=== PATIENT | male | born 1940 | race Caucasian/White ===

== ENCOUNTER → 2021-03-02 09:48 | Outpatient (CLI) | payer OTHER, SELFPAY ==
[2021-03-02 10:25] LABS: Alanine Aminotransferase 20 IU/L (<50); Albumin 4.5 g/dL (3.5-5.0); Albumin Globulin Ratio 1.5 (1.0-2.8); Alkaline Phosphatase 72 U/L (38-126); Aspartate Aminotransferase 29 IU/L (17-59); BUN Creatinine Ratio 23.5 (6-22); Bilirubin Total 0.6 mg/dL (0.2-1.3); Blood Urea Nitrogen 24 mg/dL (9-20); Calcium 9.5 mg/dL (8.4-10.2); Carbon Dioxide 30 mmol/L (22-32); Chloride 108 mmol/L (98-107); Cholesterol 258 mg/dL (140-199); Estimated Glomerular Filt Rate > 60.0 mL/min (>60); Globulin 3.1 g/dL (1.7-4.1); Glucose 99 mg/dL (80-110); HDL Cholesterol 69 mg/dL (40-60); HEMOLYSIS < 15 (0-50); LDL Cholesterol Calculated 174 mg/dL (<100); Potassium 4.2 mmol/L (3.4-5.1); Sodium 141 mmol/L (137-145); Total Protein 7.6 g/dL (6.3-8.2); Triglycerides 75 mg/dL (35-150)
--- NOTE | 2021-03-02 11:58 | DI.CT.S_ITS ---
PROCEDURE: CT ABDOMEN PELVIS W CON INDICATIONS: LLQ tenderness, constipation, h/o bowel CA TECHNIQUE: After the administration of oral and IV contrast, axial sections were acquired from the lung bases to the pubic symphysis. Coronal and sagittal reformats were performed. For radiation dose reduction, the following was used: automated exposure control, adjustment of mA and/or kV according to patient size. COMPARISON: None. FINDINGS: Image quality: Excellent. Lung bases: Unremarkable. Heart: No significant findings. ABDOMEN: Liver: Normal size. Mild hepatic steatosis.. Gallbladder: Unremarkable. Biliary ducts: Unremarkable. Pancreas: Unremarkable. Spleen: Unremarkable. Adrenal Glands: Bilateral adrenal thickening. Kidneys and Ureters: Normal size. There are multiple renal cysts bilaterally, right greater than left. Stomach and Bowel: Stomach, small bowel loops, and colon are normal in caliber. There is appearance of mild thickening of cecum and ascending colon. There is a large amount of stool in colon. Peritoneum: No abnormal intraperitoneal fluid. No free air. Ventral Wall: No hernia. Abdominal Nodes: No retroperitoneal or mesenteric adenopathy by size criteria. Vessels: Aorta and inferior vena cava are normal in size. PELVIS: Pelvic Organs: Unremarkable. Bladder: Unremarkable. Prostate is enlarged. Pelvic Nodes: No enlarged lymph nodes. Miscellaneous: No inguinal hernias are seen. Bones: Degenerative disc and facet disease in lumbar spine IMPRESSION: 1. Question mild thickening of cecum and ascending colon. Recommend colonoscopy for follow-up evaluation. 2. Mild hepatic steatosis. 3. Multiple renal cysts bilaterally. 4. A large amount of stool in colon. Dictated by: Gabriela Valdez M.D. on 03/02/2021 at 16:41 Approved by: Gabriela Valdez M.D. on 03/02/2021 at 17:22
== END ==
PROVIDERS: Family Provider Family Medicine; PCP Family Medicine; Referring Provider Family Medicine; Visit Provider Family Medicine
DX: K76.0 Fatty (change of) liver, not elsewhere classified (principal); R10.814 Left lower quadrant abdominal tenderness; N28.1 Cyst of kidney, acquired; E78.5 Hyperlipidemia, unspecified; K21.9 Gastro-esophageal reflux disease without esophagitis; K59.00 Constipation, unspecified; Z85.068 Personal history of other malignant neoplasm of small intestine
CPT/HCPCS: 36415; 74177; 80053; 80061

== ENCOUNTER → 2021-03-24 10:04 | Outpatient (CLI) | payer OTHER, SELFPAY ==
[2021-03-24 11:53] LABS: COVID19 -Nasal RAPID Negative (Negative)
== END ==
PROVIDERS: Family Provider Family Medicine; PCP Family Medicine; Visit Provider Surgery
DX: Z01.812 Encounter for preprocedural laboratory examination (principal); Z20.822 Contact with and (suspected) exposure to COVID-19
CPT/HCPCS: 87635; C9803

== ENCOUNTER 2021-03-25 07:23 | Day surgery (SDC) | payer OTHER, SELFPAY ==
[2021-03-25] VITALS (7 sets, daily range): BP systolic 106–132; BP diastolic 63–78; PULSE 67–93; RESP 12–24; TEMP 36.6–37.1; O2SAT 95–98; BMI 23.0
[2021-03-25] MEDS: LACTATED RINGERS 1,000 ML 200 ML IV (08:19)
--- NOTE | 2021-03-25 08:34 | PM.PREOP ---
Pre-operative Note COVID-19 Criteria for continued procedure: Possibility delay results in more complex future surgery or treatment Interval Note History & Physical reviewed/Exam performed by Physician: Yes Changes to H&P: No
--- NOTE | 2021-03-25 08:57 | PM.OP.COLON ---
Operative Date/Time/Diagnoses Date of procedure: 03/25/21 Time of procedure: 08:57 Pre-op diagnosis: personal history of colon cancer melena Post-op diagnosis: same Procedure & Clinicians Study performed: Colonoscopy Same procedure as scheduled: Yes Indications: Personal history of colon cancer, recent melena Surgeon: Maurilio Guerra Procedure Notes Procedure in detail: Medications: Conscious sedation using 4mg IV midazolam and 100mcg IV of fentanyl The history and physical was performed/updated and the patient is ASA class is 2. The procedure was discussed in detail with the patient. Potential risks complications including infection, bleeding, missed diagnosis, perforation, need for surgery, and were explained. Their questions were answered and informed consent was obtained. Patient was brought to the procedure room and placed standard monitoring equipment. The patient's vital signs were monitored continuously throughout the entire procedure. Prior to starting time-out was performed. The patient was placed in the left lateral recumbent position. Procedural sedation was administered. Examination began with a thorough inspection of the perianal area there was no evidence of fissures, fistulae, external hemorrhoids or cutaneous malignancy. The colonoscopy scope was then placed into the anal canal and was advanced to the cecum, which was identified by the ileocecal valve, the appendiceal orifice and the confluence of the taenia. The scope was then slowly withdrawn examining colon thoroughly in all directions, irrigating it of any residual stool. FINDINGS 1. No masses or polyps 2. Diverticulosis 3. Distal colonic anastomosis widely patent without evidence of recurrence 4. Grade 1 internal hemorrhoids-likely source of melena The patient tolerated the procedure well. They will be discharged once criteria are met. The prep was of good/excellent quality. The withdrawl time was 7 minutes. The sedation time was 20 minutes. Specimen(s): none sent Complications: none Impression: Normal colonoscopy Post-procedure Recommendations: High fiber diet Disposition: same day surgery
[2021-03-25] MEDS: fentaNYL 250 MCG/5 ML INJ IV (09:01)
[2021-03-25] MEDS: MIDAZOLAM 5 MG/5 ML VIAL IV (09:02)
== END 2021-03-25 10:03 | disposition home or self-care (01) ==
PROVIDERS: Family Provider Family Medicine; PCP Family Medicine; Referring Provider Surgery; Visit Provider Surgery
PROC: 0DJD8ZZ Inspection of Lower Intestinal Tract, Via Natural or Artificial Opening Endoscopic (ICD-10-PCS; CPT 45378; principal; 2021-03-25 08:30)
DX: R10.9 Unspecified abdominal pain (principal); K92.1 Melena; Z85.038 Personal history of other malignant neoplasm of large intestine; R93.3 Abnormal findings on diagnostic imaging of other parts of digestive tract; K57.30 Diverticulosis of large intestine without perforation or abscess without bleeding; K64.0 First degree hemorrhoids
CPT/HCPCS: 45378; 99152; J2250; J3010

== ENCOUNTER → 2021-06-14 12:44 | Outpatient (CLI) | payer OTHER, SELFPAY ==
--- NOTE | 2021-06-14 12:45 | DI.RAD.S_ITS ---
PROCEDURE: XR FOOT RT MIN 3V INDICATIONS: foot pain TECHNIQUE: 3 views of the foot were acquired. COMPARISON: [facility], , FOOT 3V LEFT, 04/28/2016, 11:59. FINDINGS: Bones: No fractures or dislocations. 2.6 mm lucency is seen in the distal aspect of the 1st proximal phalanx, which may reflect fibrocystic change. Soft tissues: No tibiotalar joint effusion. IMPRESSION: No acute osseous abnormality. Dictated by: Avelino Gomez M.D. on 06/14/2021 at 13:50 Approved by: Avelino Gomez M.D. on 06/14/2021 at 13:51
== END ==
PROVIDERS: Family Provider Family Medicine; PCP Family Medicine; Referring Provider Nurse Practitioner Family; Visit Provider Nurse Practitioner Family
DX: S99.921A Unspecified injury of right foot, initial encounter (principal)
CPT/HCPCS: 73630

== ENCOUNTER 2021-08-07 12:37 | Emergency (ER) | payer OTHER, SELFPAY ==
[2021-08-07 12:58] VITALS: BP 140/70; PULSE 75; RESP 18; TEMP 36.6; O2SAT 99; BMI 23.0
[2021-08-07 13:00] VITALS: BP 118/62
--- NOTE | 2021-08-07 13:16 | DI.CT.S_ITS ---
PROCEDURE: CT ABDOMEN PELVIS WO CON INDICATIONS: LLQ/ left inguinal region pain TECHNIQUE: Noncontrast 5 mm thick sections acquired from the diaphragms to the symphysis. 5 mm coronal and sagittal reformats were then performed. For radiation dose reduction, the following was used: automated exposure control, adjustment of mA and/or kV according to patient size. COMPARISON: [facility], CT, CT ABDOMEN PELVIS W CON, 03/02/2021, 11:28. FINDINGS: Image quality: Excellent. Lung bases: Lung bases are clear. Heart size is normal. Solid organs: Liver: The liver has no mass or intrahepatic biliary ductal dilatation. Biliary: The gallbladder is not visualized and may be contracted. Pancreas: The pancreas has no mass or ductal dilatation. There is no surrounding inflammation. Spleen: Normal size. There are no masses. Adrenals: No hypertrophy or nodules. Kidneys: No obstructive calculus or hydronephrosis. No solid mass. Both kidneys have multiple simple cysts, the largest in the right inferior pole measuring 4 cm. Peritoneum and bowel: The distal esophagus is normal. The stomach is filled with food and fluid. The small bowel has a normal caliber and appearance. The terminal ileum is normal. The large bowel has increased stool throughout consistent with constipation.. No free fluid or air. Nodes and vessels: No retroperitoneal or mesenteric adenopathy by size criteria. Aorta and inferior vena cava are normal in size. Miscellaneous: There is a fat containing left inguinal hernia which is new since 03/02/2021. The fat within the inguinal hernia demonstrates increased attenuation. PELVIS: Genitourinary: The bladder has no wall thickening or mass. No bladder calcifications. Bones: Degenerative changes with no focal abnormality. No vertebral body compression fractures. IMPRESSION: 1. Fat containing left inguinal hernia which is new since 03/02/2021. The fat demonstrates mildly increased attenuation which suggests incarceration. 2. Severe constipation. 3. Simple renal cysts. Dictated by: Arun Alvarado M.D. on 08/07/2021 at 12:47 Approved by: Arun Alvarado M.D. on 08/07/2021 at 13:00
--- NOTE | 2021-08-07 13:17 | ED_ITS ---
HPI - Abdominal Pain <ANUM Quinn - Last Filed: 08/07/21 15:02> General Chief Complaint: Abdominal Pain Stated Complaint: pain lower abdomine area Time Seen by Provider: 08/07/21 12:58 Source: patient Mode of arrival: Ambulatory History of Present Illness HPI narrative: 81-year-old male presents to the emergency department with left lower quadrant and left inguinal region pain x2 months. Patient reports that the pain radiates into his left testicle but denies any penile or testicular pain or. Patient suspects he has a hernia secondary to lifting heavy objects at home. Patient reports occasional constipation that is improved with magnesium. Patient states he had a colonoscopy in Mar 2021 and was unremarkable with the exception of diverticulosis. History of colon cancer in 2006. Patient denies any dysuria, difficulty urinating, CVA tenderness, N/V/D. Related Data Allergies Allergy/AdvReac Type Severity Reaction Status Date / Time No Known Drug Allergies Allergy Verified 06/14/21 12:14 Review of Systems <ANUM Quinn - Last Filed: 08/07/21 15:02> Review of Systems Narrative: Patient denies current fever, chills, blurry or double vision, earache, nasal congestion, sore throat, new loss of smell or taste, chest discomfort, SOB, N&V, diarrhea, dysuria, frequency, urgency, muscle or body aches, skin changes, numbness & tingling or limb weakness. Patient History <ANUM Quinn - Last Filed: 08/07/21 15:02> Medical History Anxiety Bronchospasm Chronic back pain Chronic headaches Colon cancer (2006) Colon polyps Colorectal cancer (2006) Conjunctivitis Hyperlipidemia Kidney infection Measles Memory loss Mumps Seborrheic keratosis Short-term memory loss Stroke Syncope Tendonitis Tubular adenoma (11/17/10) Surgical History History of ankle surgery (1956) History of appendectomy (11/16/06) History of colonoscopy (02/22/13) History of colonoscopy (06/20/17) History of colonoscopy with polypectomy (11/17/10) History of left cataract surgery (04/25/17) History of open sigmoidectomy (11/16/06) History of right cataract surgery (04/11/17) Family History Brother Age: 82 Heart trouble Cancer Mother Age: 101 Pain in joint, pain in unspecified joint Family/Other No problems noted. Family/Other No problems noted. Father Emphysema lung Grandfather No problems noted. Grandmother No problems noted. Grandfather Ruptured appendix Grandmother No problems noted. Sister Rheumatic fever in pediatric patient Social History household members: spouse Smoking Status: Former smoker alcohol intake: current substance use type: does not use Smoking Status: Former smoker alcohol intake frequency: 0-2 drinks per day Substance Use Type: marijuana Exam <ANUM Quinn - Last Filed: 08/07/21 15:02> Narrative Exam Narrative: Examination of well kempt and physically fit 81 year old male was unremarkable with the exception of left inguinal region tenderness. Initial Vital Signs Initial Vital Signs: Vital Signs Temperature 98 F 08/07/21 12:58 Pulse Rate 75 08/07/21 12:58 Respiratory Rate 18 08/07/21 12:58 Blood Pressure 140/70 08/07/21 12:58 Pulse Oximetry 99 08/07/21 12:58 Oxygen Delivery Method 08/07/21 12:58 verified Const General: cooperative, healthy appearing and comfortable Chest Chest: normal inspection of the chest Resp Effort & Inspection: normal respiratory effort Auscultation: clear to auscultation bilaterally Cardio Heart Sounds: S1 normal and S2 normal GI Inspection: normal to inspection Palpation: soft Auscultation: normal bowel sounds General: No CVA tenderness External: normal external exam, circumcised, no inguinal lymphadenopathy and no scrotal swelling Penis: normal penis Meatus: meatus normal Scrotum: scrotum normal and cremasteric reflex present Testes: normal Neuro General: patient alert and patient oriented x3 Psych Appearance: grossly normal <Ailyn Pedroza DO - Last Filed: 08/09/21 08:43> Initial Vital Signs Initial Vital Signs: Vital Signs Temperature 98 F 08/07/21 12:58 Pulse Rate 75 08/07/21 12:58 Respiratory Rate 18 08/07/21 12:58 Blood Pressure 140/70 08/07/21 12:58 Pulse Oximetry 99 08/07/21 12:58 Oxygen Delivery Method 08/07/21 12:58 Course <ANUM Quinn - Last Filed: 08/07/21 15:02> Orders Ordered: ED Orders 08/07/21 13:16 CT abdomen pelvis wo con Stat 08/07/21 13:18 Urine Culture Stat Urine Microscopic Stat 08/07/21 13:48 Complete Blood Count AUTO DIFF Stat Comprehensive Metabolic Panel Stat Lipase Stat Consultations Consultation #1: General surgery, Dr. Gant. Dr. Gant recommended patient contact [facility] on Monday, August 10 for evaluation and possible scheduling for elective surgery. Vital Signs Vital signs: Vital Signs - 8 hr 08/07/21 12:58 08/07/21 13:00 Temperature 98 F Pulse Rate 75 Respiratory Rate 18 Blood Pressure 140/70 118/62 Pulse Oximetry 99 Oxygen Delivery Method Room Air <Ailyn Pedroza DO - Last Filed: 08/09/21 08:43> Orders Ordered: ED Orders 08/07/21 13:16 CT abdomen pelvis wo con Stat 08/07/21 13:18 Urine Culture Stat Urine Microscopic Stat 08/07/21 13:48 Complete Blood Count AUTO DIFF Stat Comprehensive Metabolic Panel Stat Lipase Stat Vital Signs Vital signs: Vital Signs - 8 hr 08/07/21 12:58 08/07/21 13:00 Temperature 98 F Pulse Rate 75 Respiratory Rate 18 Blood Pressure 140/70 118/62 Pulse Oximetry 99 Oxygen Delivery Method Room Air MDM - Abdominal Pain <ANUM Quinn - Last Filed: 08/07/21 15:02> Differential Diagnosis Differential diagnosis: Likely constipation and other (left inguinal hernia) Lab Data Result diagrams: 08/07/21 13:48 08/07/21 13:48 Labs: Lab Results 08/07/21 08/07/21 08/07/21 Range/Units 13:18 13:48 13:48 WBC 6.5 (4.5-11.0) X10^3/uL RBC 4.22 L (4.5-5.9) X10^6/uL Hgb 13.5 (13.5-17.5) g/dL Hct 39.1 L (41-53) % MCV 92.7 (80-100) fL MCH 31.9 (26-34) PG MCHC 34.5 (30-36) % RDW 13.6 (11.6-14.8) % Plt Count 185 (150-400) X10^3/uL Neut % (Auto) 76.5 H (50-75) % Lymph % (Auto) 12.7 L (25-40) % Centre % (Auto) 7.0 (3-14) % Eos % (Auto) 3.1 (2-4) % Baso % (Auto) 0.7 (0-2) % Neut # (Auto) 5000 (2336-6191) /uL Lymph # (Auto) 800 L (0562-9000) /uL Centre # (Auto) 500 (0-900) /uL Eos # (Auto) 200 (0-450) /uL Baso # (Auto) 0 (0-100) /uL Sodium 139 (137-145) mmol/L Potassium 4.2 (3.4-5.1) mmol/L Chloride 105 (98-107) mmol/L Carbon Dioxide 26 (22-32) mmol/L BUN 31 H (9-20) mg/dL Creatinine 0.95 (0.66-1.25) mg/dL Estimated GFR > 60 (>60) mL/min BUN/Creatinine Ratio 32.6 H (6-22) Glucose 126 H (80-110) mg/dL Calcium 8.9 (8.4-10.2) mg/dL Total Bilirubin 0.6 (0.2-1.3) mg/dL AST 28 (17-59) IU/L ALT 20 (<50) IU/L Alkaline Phosphatase 68 (38-126) U/L Total Protein 6.7 (6.3-8.2) g/dL Albumin 4.0 (3.5-5.0) g/dL Globulin 2.7 (1.7-4.1) g/dL Albumin/Globulin Ratio 1.5 (1.0-2.8) Lipase 268 (23-300) U/L Urine RBC 10-30/hpf H (0-5/HPF) Urine WBC 1-5/hpf (0-5/HPF) Ur Squamous Epith Cells None seen (0-5/HPF) Urine Bacteria None seen (None) Ur Culture Indicated? Cult not indicated Point of care testing: Urine Dip Bedside Urine Glucose Negative Bedside Urine Bilirubin - Negative Bedside Urine Ketone - Negative Urine Specific [place] 1.015 Bedside Urine Occult Blood +++ Bedside Urine pH 6.0 Bedside Urine Protein +/- 15 Bedside Urine Urobilinogen - Negative Bedside Urine Nitrite - Negative Bedside Urine Leukocytes - Negative Esterase Imaging Data CT scan - abdomen/pelvis: Radiologist's Impression: [address] [address] [address] Scan Report Signed Patient: Sylvain Escobedo MR#: [id number] : 1940 Acct:[id number] Age/Sex: 81 / M Date of Service: 08/07/21 Loc: ED Accession Number: [id number] ?? Procedure: CT abdomen pelvis wo con Ordering Provider: Tomi Garcia PROCEDURE:? CT ABDOMEN PELVIS WO CON ? INDICATIONS:? LLQ/ left inguinal region pain ? TECHNIQUE:? Noncontrast 5 mm thick sections acquired from the diaphragms to the symphysis.? 5 mm coronal and sagittal reformats were then performed.? For radiation dose reduction, the following was used:? automated exposure control, adjustment of mA and/or kV according to patient size.? ? COMPARISON:? [facility], CT, CT ABDOMEN PELVIS W CON, 03/02/2021, 11:28. ? FINDINGS: Image quality:? Excellent.? ? Lung bases:? Lung bases are clear.? Heart size is normal. ? Solid organs:? Liver: The liver has no mass or intrahepatic biliary ductal dilatation. Biliary:? The gallbladder is not visualized and may be contracted.? Pancreas: The pancreas has no mass or ductal dilatation. There is no surrounding inflammation. Spleen: Normal size. There are no masses. Adrenals: No hypertrophy or nodules. Kidneys: No obstructive calculus or hydronephrosis.? No solid mass.? Both kidneys have multiple simple cysts, the largest in the right inferior pole measuring 4 cm. ? Peritoneum and bowel:? The distal esophagus is normal.? The stomach is filled with food and fluid.? The small bowel has a normal caliber and appearance. The terminal ileum is normal. The large bowel has increased stool throughout consistent with constipation..? No free fluid or air.? ? Nodes and vessels:? No retroperitoneal or mesenteric adenopathy by size criteria.? Aorta and inferior vena cava are normal in size.? ? Miscellaneous:? There is a fat containing left inguinal hernia which is new since 03/02/2021.? The fat within the inguinal hernia demonstrates increased a ttenuation. ? PELVIS:? Genitourinary:? The bladder has no wall thickening or mass. No bladder calcif ications. ? Bones:? Degenerative changes with no focal abnormality.? No vertebral body compression fractures.? ? IMPRESSION: 1. Fat containing left inguinal hernia which is new since 03/02/2021.? The fat demonstrates mildly increased attenuation which suggests incarceration.? 2. Severe constipation. 3. Simple renal cysts.? ? ? Dictated by: Arun Alvarado M.D. on 08/07/2021 at 12:47 ? ? Approved by: Arun Alvarado M.D. on 08/07/2021 at 13:00 ? MDM Narrative Medical decision making narrative: 81-year-old male presents to emergency department with left inguinal region tenderness that radiates to the left testicle. Abdominal CT reveals severe constipation and left inguinal hernia incarceration. Urinalysis reveals p ositive for blood and has multiple cysts in his kidneys. Consultation [facility]. Means who recommended patient call his office on Monday to schedule an appointment for evaluation and possible elective surgery. Discussed increased oral hydration and use of magnesium citrate to improve symptoms constipation. Discussed plan of care with patient, who was agreeable with course of action. <Ailyn Pedroza, DO - Last Filed: 08/09/21 08:43> Lab Data Labs: Lab Results 08/07/21 08/07/21 08/07/21 Range/Units 13:18 13:48 13:48 WBC 6.5 (4.5-11.0) X10^3/uL RBC 4.22 L (4.5-5.9) X10^6/uL Hgb 13.5 (13.5-17.5) g/dL Hct 39.1 L (41-53) % MCV 92.7 (80-100) fL MCH 31.9 (26-34) PG MCHC 34.5 (30-36) % RDW 13.6 (11.6-14.8) % Plt Count 185 (150-400) X10^3/uL Neut % (Auto) 76.5 H (50-75) % Lymph % (Auto) 12.7 L (25-40) % Centre % (Auto) 7.0 (3-14) % Eos % (Auto) 3.1 (2-4) % Baso % (Auto) 0.7 (0-2) % Neut # (Auto) 5000 (6089-6363) /uL Lymph # (Auto) 800 L (6644-1781) /uL Centre # (Auto) 500 (0-900) /uL Eos # (Auto) 200 (0-450) /uL Baso # (Auto) 0 (0-100) /uL Sodium 139 (137-145) mmol/L Potassium 4.2 (3.4-5.1) mmol/L Chloride 105 (98-107) mmol/L Carbon Dioxide 26 (22-32) mmol/L BUN 31 H (9-20) mg/dL Creatinine 0.95 (0.66-1.25) mg/dL Estimated GFR > 60 (>60) mL/min BUN/Creatinine Ratio 32.6 H (6-22) Glucose 126 H (80-110) mg/dL Calcium 8.9 (8.4-10.2) mg/dL Total Bilirubin 0.6 (0.2-1.3) mg/dL AST 28 (17-59) IU/L ALT 20 (<50) IU/L Alkaline Phosphatase 68 (38-126) U/L Total Protein 6.7 (6.3-8.2) g/dL Albumin 4.0 (3.5-5.0) g/dL Globulin 2.7 (1.7-4.1) g/dL Albumin/Globulin Ratio 1.5 (1.0-2.8) Lipase 268 (23-300) U/L Urine RBC 10-30/hpf H (0-5/HPF) Urine WBC 1-5/hpf (0-5/HPF) Ur Squamous Epith Cells None seen (0-5/HPF) Urine Bacteria None seen (None) Ur Culture Indicated? Cult not indicated Point of care testing: Urine Dip Bedside Urine Glucose Negative Bedside Urine Bilirubin - Negative Bedside Urine Ketone - Negative Urine Specific [place] 1.015 Bedside Urine Occult Blood +++ Bedside Urine pH 6.0 Bedside Urine Protein +/- 15 Bedside Urine Urobilinogen - Negative Bedside Urine Nitrite - Negative Bedside Urine Leukocytes - Negative Esterase Discharge Plan Departure Patient Disposition: Home Clinical Impression: Inguinal hernia, Constipation Instructions: Groin Hernia -- Adult, DI for Constipation Activity Restrictions/Additional Instructions: *You have been diagnosed with a left inguinal hernia and constipation. I recommend you contact [facility] at [phone] on Monday, August 10 to discuss an appointment and possible elective surgery. For your constipation, I recommend you drink plenty of water and take up to 1 bottle of magnesium citrate, as needed for soft bowel movements. Please return to the emergency room for any intolerable pain, chest pain, difficulty breathing, etc. *What to do: *Please continue to take your regular medications as directed. [ ] New medication prescriptions sent to your pharmacy: [ ] [ ] New medication written as a paper prescription [x ] No new medications given *Please follow up with your primary care provider in 2-3 days, call for an appointment. Let them know you were seen in the Emergency Department and that we ask that you be seen in follow up. We will electronically transmit a record of today's note if your PCP is in our system *If you do not have a primary care provider please contact the [facility] Resource line at [phone]. They will ask some questions about your medical history and help get you set up with a doctor in the community. *Return to Emergency Department if you should have any new, worsening or concerning symptoms, such as [fever greater than 101 F, shaking chills, worsening pain, persistent vomiting or other bothersome symptoms] Referrals: Butch Gant MD [Physician] - Param Law MD [Primary Care Provider] - Visit Report Forms: Patient Portal/API <Ailyn Pedroza DO - Last Filed: 08/09/21 08:43> [facility] Att[facility]: I was immediately available in the department for consultation. Documentation has been reviewed. I agree with assessment and plan.
[2021-08-07 13:31] VITALS: PULSE 72; O2SAT 97
[2021-08-07 13:35] LABS: Bacteria Urine None Seen; RBC Urine 10-30/HPF (0-5/HPF); Squamous Epithelial Cell Urine None Seen (0-5/HPF); WBC Urine 1-5/HPF (0-5/HPF)
[2021-08-07 13:36] LABS: Culture Indicated Urine Cult Not Indicated
[2021-08-07 13:54] LABS: Add Manual Diff / Slide Review NO; Basophils Absolute Auto 0 /uL (0-100); Basophils Percent Auto 0.7 % (0-2); Eosinophils Absolute Auto 200 /uL (0-450); Eosinophils Percent Auto 3.1 % (2-4); Hematocrit 39.1 % (41-53); Hemoglobin 13.5 g/dL (13.5-17.5); Lymphocytes Absolute Auto 800 /uL (1100-4500); Lymphocytes Percent Auto 12.7 % (25-40); Mean Corpuscular HGB Conc 34.5 % (30-36); Mean Corpuscular Hemoglobin 31.9 PG (26-34); Mean Corpuscular Volume 92.7 fL (80-100); Monocytes Absolute Auto 500 /uL (0-900); Neutrophils Absolute Auto 5000 /uL (1500-7000); Neutrophils Percent Auto 76.5 % (50-75); Platelet Count 185 X10^3/uL (150-400); Red Blood Cell Count 4.22 X10^6/uL (4.5-5.9); Red Cell Distribution Width 13.6 % (11.6-14.8); White Blood Cell Count 6.5 X10^3/uL (4.5-11.0)
[2021-08-07 14:00] VITALS: PULSE 68; O2SAT 97
[2021-08-07 14:04] LABS: Alanine Aminotransferase 20 IU/L (<50); Albumin Globulin Ratio 1.5 (1.0-2.8); Alkaline Phosphatase 68 U/L (38-126); Aspartate Aminotransferase 28 IU/L (17-59); BUN Creatinine Ratio 32.6 (6-22); Bilirubin Total 0.6 mg/dL (0.2-1.3); Blood Urea Nitrogen 31 mg/dL (9-20); Calcium 8.9 mg/dL (8.4-10.2); Carbon Dioxide 26 mmol/L (22-32); Chloride 105 mmol/L (98-107); Estimated Glomerular Filt Rate > 60 mL/min (>60); Globulin 2.7 g/dL (1.7-4.1); Glucose 126 mg/dL (80-110); HEMOLYSIS < 15 (0-50); Lipase 268 U/L (23-300); Potassium 4.2 mmol/L (3.4-5.1); Sodium 139 mmol/L (137-145); Total Protein 6.7 g/dL (6.3-8.2)
[2021-08-07 14:30] VITALS: PULSE 68; O2SAT 97
[2021-08-07 14:59] VITALS: BP 138/73; PULSE 68; RESP 16; O2SAT 98
== END 2021-08-07 15:03 | disposition home or self-care (01) ==
PROVIDERS: Emergency Provider Registered Nurse; Family Provider Family Medicine; PCP Family Medicine
DX: K40.90 Unilateral inguinal hernia, without obstruction or gangrene, not specified as recurrent (principal); K59.00 Constipation, unspecified
CPT/HCPCS: 36415; 74176; 80053; 81003; 81015; 83690; 85025; 87086; 99284

== ENCOUNTER → 2022-01-06 09:03 | Outpatient (CLI) | payer OTHER, SELFPAY ==
[2022-01-06 11:15] LABS: COVID19 -Nasal RAPID Negative (Negative)
== END ==
PROVIDERS: Family Provider Family Medicine; PCP Family Medicine; Visit Provider Surgery
DX: Z20.822 Contact with and (suspected) exposure to COVID-19 (principal); Z01.812 Encounter for preprocedural laboratory examination
CPT/HCPCS: 87635; C9803

== ENCOUNTER → 2022-01-20 10:40 | Outpatient (CLI) | payer OTHER, SELFPAY ==
[2022-01-20 13:11] LABS: COVID19 -Nasal RAPID Negative (Negative)
== END ==
PROVIDERS: Family Provider Family Medicine; PCP Family Medicine; Visit Provider Surgery
DX: Z01.812 Encounter for preprocedural laboratory examination (principal); Z20.822 Contact with and (suspected) exposure to COVID-19
CPT/HCPCS: 87635; C9803

== ENCOUNTER 2022-01-21 13:35 | Day surgery (SDC) | payer OTHER, SELFPAY ==
[2022-01-05 07:49] VITALS: BMI 23.0
[2022-01-21 14:15] VITALS: BP 135/72; PULSE 78; RESP 16; TEMP 36.6; O2SAT 98
[2022-01-21 15:02] VITALS: BMI 23.0
--- NOTE | 2022-01-21 16:26 | P.OP_ITS ---
Operative Date/Time/Diagnoses Date of procedure: 01/21/22 Time of procedure: 16:26 Pre-op diagnosis: Left inguinal hernia Post-op diagnosis: same Procedure & Clinicians Procedure: Open left inguinal hernia repair with mesh Same procedure as scheduled: Yes Indications: Symptomatic left inguinal hernia Surgeon: Maurilio Thurman Yes if Unassisted: Yes Anesthesia Type: General Operative Notes Findings: Indirect hernia. No indirect floor defect Specimen(s): none sent Estimated Blood Loss (mL): 20 Procedure in detail: The patient was placed supine on the table and bilateral lower extremity compression devices were applied. Anesthesia was induced they were intubated with an LMA and received Ancef. A time-out was performed. They were prepped and draped in sterile fashion. The right external inguinal ring and the anterior superior iliac crest were identified and marked. 1 finger breath above the inguinal ligament the skin was infiltrated with 0.25% bupivacaine. The skin incision was made, the subcutaneous tissues were divided with electrocautery exposing the external oblique aponeurosis which was then opened along the direction of its fibers. Using blunt dissection the internal oblique aporneurosis was from the external oblique upper leaflet. The cord was carefully dissected away from the inguinal canal adjacent to the pubic tubercle. The cord including the vas deferens, testicular bloody supply, ilioguinal and genital nerve were encircled with a [place] drain. No direct floor defect was identified. The cremasteric fibers surrounding the cord were divided adjacent to the internal ring. The vas deferens and the testicular vessels were preserved and protected. The cord contents were carefully explored. There was a small indirect hernia on the anterior medial aspect of the cord which was skeletonized away from the vas deferens and testicular blood supply. The indirect hernia was skeletonized back to the internal ring and reduced spontaneously into the abdomen. A 7x 15 cm lightweight Bard Pro Loop hernia mesh was anchored to the insertion of the rectus muscle at the pubic tubercle such that there was approximately 2 cm of tubercle overlap with Ethibond. The inferior edge of the mesh was secured to the shelving edge of the inguinal ligament using Ethibond. Interrupted 3 0 Vicryl suture was used to anchor the superior aspect of the mesh to the conjoined tendon in several places. The tails were then reapproximated loosely around the spermatic cord. The tails of the mesh were then tucked under the external oblique aponeurosis. The repair was checked for hemostasis. The wound was irrigated with sterile saline. The external oblique aponeurosis was reapproximated in a running fashion using 3 0 Vicryl. The subcutaneous tissues were reapproximated with 3 0 Vicryl skin closed with 4 0 Monocryl followed by the application of Dermabond. At the end of the operation I ensured that both testicles were within the scrotum. The sponge instrument count at the end operation was correct. The patient emerged from anesthesia was extubated and transferred to the postoperative care unit in stable condition. A total of 30 ml of of 0.25% bupivicaine was used to infiltrate the skin. Complications: none Post-operative Condition: stable Disposition: same day surgery
--- NOTE | 2022-01-21 16:26 | PM.PREOP ---
Pre-operative Note Interval Note History & Physical reviewed/Exam performed by Physician: Yes Changes to H&P: No
[2022-01-21] MEDS: CEFAZOLIN 2 GM/100 ML PREMIX 100 ML IV (16:38)
[2022-01-21] MEDS: LIDOCAINE 1% 20 ML INJ (16:59)
--- NOTE | 2022-01-21 17:03 | SUR.OPER ---
Supine on padded OR bed, head on pillow, arms secured on padded arm boards at <90 degrees abduction, legs uncrossed, safety belt at thigh, GEL TO HEELS
[2022-01-21 17:31] VITALS: BP 131/89; PULSE 92; RESP 17; TEMP 36.2; O2SAT 97
[2022-01-21 17:36] VITALS: BP 136/80; PULSE 78; RESP 13; O2SAT 99
[2022-01-21 17:41] VITALS: BP 137/89; PULSE 92; RESP 15; O2SAT 100
[2022-01-21 17:47] VITALS: BP 141/96; PULSE 86; RESP 13; TEMP 36.2; O2SAT 100
[2022-01-21 17:54] VITALS: BP 151/86; PULSE 86; RESP 13; TEMP 36.4; O2SAT 100
== END 2022-01-21 18:27 | disposition home or self-care (01) ==
PROVIDERS: Family Provider Family Medicine; PCP Family Medicine; Referring Provider Surgery; Visit Provider Surgery
PROC: (CPT 49505; principal; 2022-01-21 15:00)
DX: K40.90 Unilateral inguinal hernia, without obstruction or gangrene, not specified as recurrent (principal)
CPT/HCPCS: 49505; 82962; J0690; J1100; J1885; J2405; J2704; J3010

== ENCOUNTER → 2022-02-08 12:55 | Outpatient (CLI) | payer OTHER, SELFPAY ==
--- NOTE | 2022-02-08 12:57 | DI.RAD.S_ITS ---
PROCEDURE: XR FOOT RT MIN 3V INDICATIONS: right foot pain TECHNIQUE: 3 views of the foot were acquired. COMPARISON: [facility], , XR FOOT RT MIN 3V, 06/14/2021, 12:33. FINDINGS: Bones: No fractures or dislocations. No suspicious bony lesions. Soft tissues: No tibiotalar joint effusion. Achilles tendon appears normal. IMPRESSION: No fracture. No acute osseous lesion. If symptoms and/or clinical suspicion for pathology persists, further assessment with repeat radiographs (7-10 days) or advanced imaging (e.g. CT, MRI or bone scan) should be considered. Dictated by: Opal Alarcon MD, PhD on 02/08/2022 at 13:18 Approved by: Opal Alarcon MD, PhD on 02/08/2022 at 13:19
== END ==
PROVIDERS: Family Provider Family Medicine; PCP Family Medicine; Referring Provider Physician Assistant Medical; Visit Provider Physician Assistant Medical
DX: L03.119 Cellulitis of unspecified part of limb (principal); R60.0 Localized edema; Z91.81 History of falling
CPT/HCPCS: 73630

== ENCOUNTER → 2022-03-16 09:01 | Outpatient (CLI) | payer OTHER, SELFPAY ==
[2022-03-16 10:02] LABS: Add Manual Diff / Slide Review NO; Basophils Absolute Auto 100 /uL (0-100); Eosinophils Absolute Auto 400 /uL (0-450); Eosinophils Percent Auto 6.3 % (2-4); Hematocrit 38.6 % (41-53); Hemoglobin 12.9 g/dL (13.5-17.5); Lymphocytes Absolute Auto 1000 /uL (1100-4500); Lymphocytes Percent Auto 14.3 % (25-40); Mean Corpuscular HGB Conc 33.3 % (30-36); Mean Corpuscular Hemoglobin 31.2 PG (26-34); Mean Corpuscular Volume 93.5 fL (80-100); Monocytes Absolute Auto 500 /uL (0-900); Monocytes Percent Auto 7.5 % (3-14); Neutrophils Absolute Auto 5000 /uL (1500-7000); Neutrophils Percent Auto 70.9 % (50-75); Platelet Count 298 X10^3/uL (150-400); Red Blood Cell Count 4.13 X10^6/uL (4.5-5.9); Red Cell Distribution Width 13.3 % (11.6-14.8)
[2022-03-16 10:27] LABS: Alanine Aminotransferase 18 IU/L (<50); Albumin 3.9 g/dL (3.5-5.0); Albumin Globulin Ratio 1.3 (1.0-2.8); Alkaline Phosphatase 92 U/L (38-126); Aspartate Aminotransferase 24 IU/L (17-59); BUN Creatinine Ratio 22.9 (6-22); Bilirubin Total 0.6 mg/dL (0.2-1.3); Blood Urea Nitrogen 22 mg/dL (9-20); Calcium 9.2 mg/dL (8.4-10.2); Carbon Dioxide 30 mmol/L (22-32); Chloride 103 mmol/L (98-107); Cholesterol 204 mg/dL (140-199); Estimated Glomerular Filt Rate > 60 mL/min (>60); Globulin 2.9 g/dL (1.7-4.1); Glucose 88 mg/dL (80-110); HDL Cholesterol 52 mg/dL (40-60); HEMOLYSIS < 15 (0-50); LDL Cholesterol Calculated 136 mg/dL (<100); Potassium 4.7 mmol/L (3.4-5.1); Sodium 140 mmol/L (137-145); Total Protein 6.8 g/dL (6.3-8.2); Triglycerides 78 mg/dL (35-150)
[2022-03-17 12:30] LABS: Uric Acid 7.8 mg/dL (3.5-8.5)
== END ==
PROVIDERS: Nurse Practitioner Family; Family Provider Family Medicine; PCP Family Medicine; Referring Provider Family Medicine; Visit Provider Family Medicine
DX: E78.2 Mixed hyperlipidemia (principal); Z12.5 Encounter for screening for malignant neoplasm of prostate; K40.90 Unilateral inguinal hernia, without obstruction or gangrene, not specified as recurrent; R73.9 Hyperglycemia, unspecified; Z85.038 Personal history of other malignant neoplasm of large intestine; Z90.49 Acquired absence of other specified parts of digestive tract; M10.9 Gout, unspecified
CPT/HCPCS: 36415; 80053; 80061; 84550; 85025; G0103

== ENCOUNTER → 2022-06-03 14:35 | Outpatient (CLI) | payer OTHER, SELFPAY ==
[2022-06-03 14:48] LABS: Appearance Urine UA CLEAR; Bilirubin Urine UA NEGATIVE (NEGATIVE); Color Urine UA YELLOW; Glucose Urine UA NEGATIVE (Negative); Ketones Urine UA NEGATIVE (NEGATIVE); Leukocyte Esterase Urine UA NEGATIVE (NEGATIVE); Nitrite Urine UA NEGATIVE (Negative); Occult Blood Urine UA 3+ (Negative); Protein Urine UA 1+ (Negative); Specific Gravity Urine UA 1.025 (1.000-1.035); Urobilinogen Urine UA 0.2 E.U./dL (0.2); pH Urine UA 5.5 (4.5-8.0)
[2022-06-03 15:02] LABS: Bacteria Urine None Seen; Culture Indicated Urine Cult Not Indicated; RBC Urine 5-10/HPF (0-5/HPF); Squamous Epithelial Cell Urine 0-1 /HPF (0-5/HPF); WBC Urine 0-1/HPF (0-5/HPF)
[2022-06-03 15:53] LABS: Prostate Specific Antigen 5.04 ng/mL (0.10-4.00)
== END ==
PROVIDERS: Family Provider Family Medicine; PCP Family Medicine; Referring Provider Family Medicine; Visit Provider Family Medicine
DX: R31.9 Hematuria, unspecified (principal)
CPT/HCPCS: 36415; 81001; 84153

== ENCOUNTER 2023-07-02 15:15 | Emergency (ER) | payer OTHER, SELFPAY ==
[2023-07-02] VITALS (14 sets, daily range): BP systolic 108–151; BP diastolic 56–69; PULSE 62–82; RESP 15–29; TEMP 36.9; O2SAT 97–99; BMI 23.0
--- NOTE | 2023-07-02 15:27 | DI.RAD.S_ITS ---
PROCEDURE: XR CHEST 1V INDICATIONS: chest pain TECHNIQUE: One view of the chest was acquired. COMPARISON: [facility], , CHEST 2 VIEW, 04/05/2012, 7:37. FINDINGS: Surgical changes and devices: None. Lungs and pleura: Lungs are clear. No pleural effusions or pneumothorax. Mediastinum: Mediastinal contours appear normal. Heart size is normal. Bones and chest wall: No suspicious bony lesions. Overlying soft tissues appear unremarkable. IMPRESSION: No acute cardiopulmonary abnormality is seen. Approved by: Christin Jeffrey M.D.,Ph.D. on 07/02/2023 at 15:18
[2023-07-02] MEDS: ASPIRIN 81 MG CHEW TAB 324 MG PO (15:35)
[2023-07-02 15:43] LABS: INR 1.2 (0.9-1.3); Prothrombin Time 13.6 SECONDS (9.4-12.5)
[2023-07-02 15:46] LABS: Add Manual Diff / Slide Review NO; Basophils Absolute Auto 100 /uL (0-100); Basophils Percent Auto 0.8 % (0-2); Eosinophils Absolute Auto 300 /uL (0-450); Hematocrit 42.4 % (41-53); Hemoglobin 14.5 g/dL (13.5-17.5); Lymphocytes Absolute Auto 1200 /uL (1100-4500); Mean Corpuscular HGB Conc 34.1 % (30-36); Mean Corpuscular Hemoglobin 32.3 PG (26-34); Mean Corpuscular Volume 94.7 fL (80-100); Monocytes Absolute Auto 600 /uL (0-900); Monocytes Percent Auto 8.3 % (3-14); Neutrophils Absolute Auto 5300 /uL (1500-7000); Neutrophils Percent Auto 70.9 % (50-75); PTT Partial Thromboplastin Tim 35 SECONDS (25.1-36.5); Platelet Count 243 X10^3/uL (150-400); Red Blood Cell Count 4.47 X10^6/uL (4.5-5.9); Red Cell Distribution Width 13.6 % (11.6-14.8); White Blood Cell Count 7.4 X10^3/uL (4.5-11.0)
[2023-07-02 15:54] LABS: Alanine Aminotransferase 24 IU/L (<50); Albumin 4.4 g/dL (3.5-5.0); Albumin Globulin Ratio 1.6 (1.0-2.8); Alkaline Phosphatase 94 U/L (38-126); Aspartate Aminotransferase 31 IU/L (17-59); BUN Creatinine Ratio 27.7 (6-22); Bilirubin Total 0.7 mg/dL (0.2-1.3); Blood Urea Nitrogen 26 mg/dL (9-20); Calcium 9.2 mg/dL (8.4-10.2); Carbon Dioxide 23 mmol/L (22-32); Chloride 110 mmol/L (98-107); Creatine Kinase 112 U/L (55-170); Estimated Glomerular Filt Rate > 60 mL/min (>60); Globulin 2.7 g/dL (1.7-4.1); Glucose 97 mg/dL (80-110); HEMOLYSIS < 15 (0-50); Lipase 134 U/L (23-300); Magnesium 2.2 mg/dL (1.6-2.3); Potassium 4.1 mmol/L (3.4-5.1); Sodium 141 mmol/L (137-145); Total Protein 7.1 g/dL (6.3-8.2)
[2023-07-02 16:05] LABS: Troponin I < 0.012 ng/mL (0.01-0.034)
--- NOTE | 2023-07-02 18:02 | ED_ITS ---
HPI - Chest Pain General Chief Complaint: Chest Pain Stated Complaint: chest pain shooting down lt arm Time Seen by Provider: 07/02/23 18:02 Source: patient Mode of arrival: Ambulatory Limitations: no limitations History of Present Illness HPI narrative: This is an 83-year-old male history with colon cancer in 2017 treated with colectomy, gout who presents with complaint of left upper shoulder pain that radiates down his arm. He states it seems to be intermittent sometimes worse at nighttime when sleeping. There does seem to be movement component to it. Does not have any clear exacerbating factors but can make it better sometimes with change of position. It will typically last a couple minutes and then resolve he has had several episodes today. Does occasionally gets some paresthesias in his fingers. He denies any shortness of breath with these episodes no diaphoresis no nausea or vomiting no syncope. No swelling. Patient states he does note that he went for a hike [place] on [place] couple of weeks ago he got more short of breath than he would have expected and had to take a rest. He does state he has been deconditioned over the past year secondary to having hernia repair and some gout flares that have decreased his activity. He does not feel short of breath with these episodes of chest pain and he did not have any chest pain with his hike. Patient states he has not on any prescription medications he does follow regularly with a physician, does not have a history of hypertension, dyslipidemia or diabetes. Had hernia repair in the last year, no known drug allergies, no tobacco, rare alcohol, occasional THC but no other recreational drugs. Patient follows with Dr. Law. Patient did not take anything for pain today. Related Data Home Medications Medication Instructions Recorded Confirmed [id number] 250 1 tab PO Q4-6H PRN Headache 12/28/21 04/07/22 mg-250 mg-65 mg tablet (Excedrin Migraine) Previous Rx's Medication Instructions Recorded indomethacin 50 mg capsule 50 mg PO BID PRN gout #30 caps 05/05/22 tamsulosin 0.4 mg capsule (Flomax) 0.4 mg PO BEDTIME #60 caps 05/05/22 Allergies Allergy/AdvReac Type Severity Reaction Status Date / Time No Known Drug Allergies Allergy Verified 05/05/22 09:00 Review of Systems Review of Systems ROS Unobtainable: All systems reviewed & are unremarkable except as noted in HPI and below Patient History Medical History Anemia Diverticulosis Bowel obstruction Arthritis Pneumonia Depression Difficulty swallowing Gout Sinus drainage Anxiety Short-term memory loss Conjunctivitis Tubular adenoma (11/17/10) Bronchospasm Syncope Memory loss Stroke Chronic headaches Tendonitis Chronic back pain Seborrheic keratosis Mumps Measles Kidney infection Hyperlipidemia Colon polyps Colorectal cancer (2006) Colon cancer (2006) Surgical History History of colonoscopy (06/20/17) History of colonoscopy (02/22/13) History of left cataract surgery (04/25/17) History of right cataract surgery (04/11/17) History of appendectomy (11/16/06) History of colonoscopy with polypectomy (11/17/10) History of open sigmoidectomy (11/16/06) History of ankle surgery (1956) Family History Brother Age: 84 Heart trouble Cancer Mother Age: 103 Pain in joint, pain in unspecified joint Family/Other No problems noted. Family/Other No problems noted. Father Emphysema lung Grandfather No problems noted. Grandmother No problems noted. Grandfather Ruptured appendix Grandmother No problems noted. Sister Rheumatic fever in pediatric patient Social History household members: spouse Smoking Status: Former smoker alcohol intake: current substance use type: does not use Smoking Status: Former smoker alcohol intake frequency: holidays/special occasions only Substance Use Type: marijuana Exam Narrative Exam Narrative: GENERAL: Alert and oriented x three, well-appearing male in no acute distress. HEENT: Head normocephalic, atraumatic, EOMI, pupils reactive, face symmetric, moist mucous membranes NECK: Supple, full range of motion, positive symptoms with Spurling's test for paresthesias. CARDIOVASCULAR: Regular rate and rhythm without murmurs, rubs or gallops. No JVD. 2+ pulses bilateral upper extremities. RESPIRATORY: Breath sounds equal bilaterally, no wheezes rales or rhonchi. ABDOMEN: Soft, nontender. Normoactive bowel sounds all 4 quadrants. No guarding or rebound, rigidity, no mass : No CVA tenderness EXTREMITIES: Normal range of motion, no clubbing or edema. Neurovascularly intact, cnc set up operator equal bilaterally, 5/5 muscle strength. Patient does have some increase his symptoms when I palpate his upper thoracic back of the superior edge of the scapula NEUROLOGICAL: Cranial nerves II through XII grossly intact. Moving all extremities SKIN: Warm, dry, no petechiae, no rashes or lesions. Initial Vital Signs Initial Vital Signs: Vital Signs Pulse Rate 82 07/02/23 15:21 Pulse Oximetry 97 07/02/23 15:21 Course Orders Ordered: Discontinued Medications Aspirin (Aspirin 81 Mg Chew Tab) 324 mg PO NOW ONE Stop: 07/02/23 15:28 Last Admin: 07/02/23 15:35 Dose: 324 mg Documented By: LISA Vital Signs Vital signs: Vital Signs - 8 hr 07/02/23 15:21 07/02/23 15:22 07/02/23 15:22 Temperature Pulse Rate 82 79 Respiratory Rate Blood Pressure 151/69 H Pulse Oximetry 97 97 Oxygen Delivery Method 07/02/23 15:23 07/02/23 15:30 07/02/23 15:31 Temperature 98.5 F Pulse Rate 78 71 69 Respiratory Rate 16 19 17 Blood Pressure 151/69 H Pulse Oximetry 99 97 97 Oxygen Delivery Method Room Air 07/02/23 15:31 07/02/23 16:00 07/02/23 16:00 Temperature Pulse Rate 62 Respiratory Rate 15 Blood Pressure 125/60 116/60 Pulse Oximetry 97 Oxygen Delivery Method 07/02/23 16:30 07/02/23 16:30 07/02/23 17:00 Temperature Pulse Rate 68 Respiratory Rate 15 Blood Pressure 122/58 L 120/58 L Pulse Oximetry 97 Oxygen Delivery Method 07/02/23 17:00 07/02/23 17:30 07/02/23 17:31 Temperature Pulse Rate 63 63 62 Respiratory Rate 17 25 H 21 Blood Pressure Pulse Oximetry 99 99 99 Oxygen Delivery Method 07/02/23 17:31 07/02/23 18:00 07/02/23 18:00 Temperature Pulse Rate 62 Respiratory Rate 21 Blood Pressure 122/60 113/56 L Pulse Oximetry 99 Oxygen Delivery Method Room Air 07/02/23 18:30 07/02/23 18:30 07/02/23 19:00 Temperature Pulse Rate 62 64 Respiratory Rate 18 Blood Pressure 117/59 L Pulse Oximetry 99 98 Oxygen Delivery Method MDM - Chest Pain Lab Data 07/02/23 15:27 07/02/23 15:27 Labs: Lab Results 07/02/23 07/02/23 Range/Units 15:27 17:33 WBC 7.4 (4.5-11.0) X10^3/uL RBC 4.47 L (4.5-5.9) X10^6/uL Hgb 14.5 (13.5-17.5) g/dL Hct 42.4 (41-53) % MCV 94.7 (80-100) fL MCH 32.3 (26-34) PG MCHC 34.1 (30-36) % RDW 13.6 (11.6-14.8) % Plt Count 243 (150-400) X10^3/uL Neut % (Auto) 70.9 (50-75) % Lymph % (Auto) 16.0 L (25-40) % Andrew % (Auto) 8.3 (3-14) % Eos % (Auto) 4.0 (2-4) % Baso % (Auto) 0.8 (0-2) % Neut # (Auto) 5300 (6302-8706) /uL Lymph # (Auto) 1200 (9389-8239) /uL Andrew # (Auto) 600 (0-900) /uL Eos # (Auto) 300 (0-450) /uL Baso # (Auto) 100 (0-100) /uL PT 13.6 H (9.4-12.5) SECONDS INR 1.2 (0.9-1.3) APTT 35 (25.1-36.5) SECONDS Sodium 141 (137-145) mmol/L Potassium 4.1 (3.4-5.1) mmol/L Chloride 110 H (98-107) mmol/L Carbon Dioxide 23 (22-32) mmol/L BUN 26 H (9-20) mg/dL Creatinine 0.94 (0.66-1.25) mg/dL Estimated GFR > 60 (>60) mL/min BUN/Creatinine Ratio 27.7 H (6-22) Glucose 97 (80-110) mg/dL Calcium 9.2 (8.4-10.2) mg/dL Magnesium 2.2 (1.6-2.3) mg/dL Total Bilirubin 0.7 (0.2-1.3) mg/dL AST 31 (17-59) IU/L ALT 24 (<50) IU/L Alkaline Phosphatase 94 (38-126) U/L Total Creatine Kinase 112 (55-170) U/L Troponin I < 0.012 < 0.012 (0.01-0.034) ng/mL Total Protein 7.1 (6.3-8.2) g/dL Albumin 4.4 (3.5-5.0) g/dL Globulin 2.7 (1.7-4.1) g/dL Albumin/Globulin Ratio 1.6 (1.0-2.8) Lipase 134 (23-300) U/L Imaging Data Chest x-ray: Radiologist's Impression: Close Chest X-Ray (Signed) Christin Jeffrey - 07/02/23 Foot X-Ray (Signed) Opal Alarcon - 02/08/22 Abdomen/Pelvis CT (Signed) Arun Alvarado - 08/07/21 Foot X-Ray (Signed) Avelino Gomez - 06/14/21 Telemetry Strips 03/25/21 Abdomen/Pelvis CT (Signed) Jimmy Valdez - 03/02/21 Telemetry Strips 06/20/17 [facility] [address] XRay Report Signed Patient: Sylvain Escobedo MR#: [id number] : 1940 Acct:[id number] Age/Sex: 83 / M Date of Service: 07/02/23 Loc: ED Accession Number: [id number] Procedure: XR chest 1V Ordering Provider: Silviano Jimenez MD PROCEDURE: XR CHEST 1V INDICATIONS: chest pain TECHNIQUE: One view of the chest was acquired. COMPARISON: [facility], , CHEST 2 VIEW, 04/05/2012, 7:37. FINDINGS: Surgical changes and devices: None. Lungs and pleura: Lungs are clear. No pleural effusions or pneumothorax. Mediastinum: Mediastinal contours appear normal. Heart size is normal. Bones and chest wall: No suspicious bony lesions. Overlying soft tissues appear unremarkable. IMPRESSION: No acute cardiopulmonary abnormality is seen. Approved by: Christin Jeffrey M.D.,Ph.D. on 07/02/2023 at 15:18 ECG Data Attestation: I personally reviewed and interpreted this ECG as follows: Prior ECG tracings: available for review Interpretation: Sinus rhythm rate of 72 [place] 186 QRS [address]TC [address] No acute [address] elevation depression. Patient has prior from 07/03/2010 which appears similar. EKG 2. Sinus rhythm rate of 62 [place] 196 QRS 80 QTC 403. No dynamic changes. [facility] Narrative Medical decision making narrative: 83-year-old male complains of left-sided chest pain radiation down his arm, no other symptoms with those episodes it comes and goes over a few minutes quite frequently has some relation to movement and was somewhat reproducible today. Patient does note that he had an episode where he went for a hike and got quite short of breath and had to take a break but notes he has been deconditioned over the past year. Patient does have some family history, no other risk factors besides age. Patient's labs show white count of 7.4 hemoglobin of 14 platelets 243 glucose of 97 normal renal function with normal electrolytes INR is 1.2 patient had troponin less than 0.012 x 2, chest x-ray was negative no acute EKG changes compared to prior EKG in 2010. Discussed with patient does not appear to be having cardiac event today some of his symptoms maybe musculoskeletal with his arm but does have some concern with the shortness of breath with exertion although these do not seem to be linked to the same time. Patient was offered observation for cardiac workup he defers but we will follow up with primary care with goal to discuss this this week. Discharge Plan Departure Patient Disposition: Home Clinical Impression: Chest pain Instructions: DI for Chest Pain Activity Restrictions/Additional Instructions: Please follow-up with Dr. Law, call this week for an appointment. Think it would be worthwhile to talk to them about stress testing for your episode of shortness of breath. As discussed her episodes of pain in your chest and arm there is potential for cardiac cause but it does seem to be more likely musculoskeletal. You can take Tylenol up to a 1000 mg every 6 hours as needed for pain. Please return for new or worsening symptoms increasing shortness of breath, sweatiness, nausea or vomiting, lightheadedness or passing out swelling of extremities or other new or concerning changes. Prescriptions: No Action Excedrin Migraine 250-250-65 mg tablet 1 tab PO Q4-6H PRN (Reason: Headache) indomethacin 50 mg capsule 50 mg PO BID PRN (Reason: gout ) Qty: 30 1RF Rx Instructions: administer with food or milk tamsulosin [Flomax] 0.4 mg capsule 0.4 mg PO BEDTIME Qty: 60 1RF Referrals: Param Law MD [Primary Care Provider] - Stand Alone Forms: Patient Portal/API
[2023-07-02 18:04] LABS: Troponin I < 0.012 ng/mL (0.01-0.034)
== END 2023-07-02 19:27 | disposition home or self-care (01) ==
PROVIDERS: Emergency Medicine; Emergency Provider Emergency Medicine; Family Provider Family Medicine; PCP Family Medicine
DX: R07.9 Chest pain, unspecified (principal)
CPT/HCPCS: 36415; 71045; 80053; 82550; 83690; 83735; 84484; 85025; 85610; 85730; 93005; 99284

== ENCOUNTER → 2023-07-20 11:00 | Outpatient (CLI) | payer OTHER, SELFPAY ==
[2023-07-20 13:22] LABS: Alanine Aminotransferase 27 IU/L (<50); Albumin Globulin Ratio 1.7 (1.0-2.8); Alkaline Phosphatase 81 U/L (38-126); Aspartate Aminotransferase 32 IU/L (17-59); BUN Creatinine Ratio 24.2 (6-22); Bilirubin Total 0.7 mg/dL (0.2-1.3); Blood Urea Nitrogen 30 mg/dL (9-20); Calcium 8.9 mg/dL (8.4-10.2); Carbon Dioxide 28 mmol/L (22-32); Chloride 107 mmol/L (98-107); Cholesterol 204 mg/dL (140-199); Estimated Glomerular Filt Rate 58 mL/min (>60); Globulin 2.4 g/dL (1.7-4.1); Glucose 115 mg/dL (80-110); HDL Cholesterol 65 mg/dL (40-60); HEMOLYSIS < 15 (0-50); LDL Cholesterol Calculated 125 mg/dL (<100); Potassium 4.7 mmol/L (3.4-5.1); Sodium 139 mmol/L (137-145); Total Protein 6.4 g/dL (6.3-8.2); Triglycerides 71 mg/dL (35-150)
[2023-07-21 04:12] LABS: Apolipoprotein B 93 mg/dL (<90)
== END ==
LOC: LAB 11:01
PROVIDERS: Family Provider Family Medicine; PCP Family Medicine; Referring Provider Family Medicine; Visit Provider Family Medicine
DX: Z12.5 Encounter for screening for malignant neoplasm of prostate (principal); E78.5 Hyperlipidemia, unspecified; D64.9 Anemia, unspecified; R97.20 Elevated prostate specific antigen [PSA]; R07.89 Other chest pain
CPT/HCPCS: 36415; 80053; 80061; 82172; G0103

== ENCOUNTER → 2024-08-02 12:48 | Outpatient (CLI) | payer MEDICARE, SELFPAY ==
[2024-08-02 13:08] LABS: Add Manual Diff / Slide Review NO; Basophils Absolute Auto 0 /uL (0-100); Basophils Percent Auto 0.7 % (0-2); Eosinophils Absolute Auto 300 /uL (0-450); Eosinophils Percent Auto 4.9 % (2-4); Hematocrit 40.4 % (41-53); Hemoglobin 13.7 g/dL (13.5-17.5); Lymphocytes Absolute Auto 1000 /uL (1100-4500); Lymphocytes Percent Auto 16.5 % (25-40); Mean Corpuscular HGB Conc 33.9 % (30-36); Mean Corpuscular Hemoglobin 32.2 PG (26-34); Monocytes Absolute Auto 500 /uL (0-900); Monocytes Percent Auto 8.6 % (3-14); Neutrophils Absolute Auto 4400 /uL (1500-7000); Neutrophils Percent Auto 69.3 % (50-75); Platelet Count 224 X10^3/uL (150-400); Red Blood Cell Count 4.25 X10^6/uL (4.5-5.9); Red Cell Distribution Width 13.6 % (11.6-14.8); White Blood Cell Count 6.3 X10^3/uL (4.5-11.0)
[2024-08-02 13:36] LABS: Alanine Aminotransferase 21 IU/L (<50); Albumin 4.1 g/dL (3.5-5.0); Albumin Globulin Ratio 1.4 (1.0-2.8); Alkaline Phosphatase 76 U/L (38-126); Aspartate Aminotransferase 28 IU/L (17-59); BUN Creatinine Ratio 28.2 (6-22); Bilirubin Total 0.5 mg/dL (0.2-1.3); Blood Urea Nitrogen 31 mg/dL (9-20); Calcium 9.4 mg/dL (8.4-10.2); Carbon Dioxide 27 mmol/L (22-32); Chloride 106 mmol/L (98-107); Cholesterol 196 mg/dL (140-199); Estimated Glomerular Filt Rate > 60 mL/min (>60); Globulin 2.9 g/dL (1.7-4.1); Glucose 93 mg/dL (70-99); HDL Cholesterol 52 mg/dL (40-60); HEMOLYSIS < 15 (0-50); LDL Cholesterol Calculated 123 mg/dL (<100); Potassium 4.6 mmol/L (3.4-5.1); Sodium 141 mmol/L (137-145); Triglycerides 106 mg/dL (35-150)
[2024-08-02 14:06] LABS: TSH w/ Reflex to FT4 2.29 uIU/mL (0.47-4.68)
[2024-08-02 14:07] LABS: Prostate Specific Antigen Scrn 3.55 ng/mL (0.1-4.0)
== END ==
PROVIDERS: PCP Family Medicine; Referring Provider Family Medicine; Visit Provider Family Medicine
DX: Z12.5 Encounter for screening for malignant neoplasm of prostate (principal); E78.5 Hyperlipidemia, unspecified; F90.9 Attention-deficit hyperactivity disorder, unspecified type; D64.9 Anemia, unspecified; R79.89 Other specified abnormal findings of blood chemistry
CPT/HCPCS: 36415; 80053; 80061; 84443; 85025; G0103